=== PATIENT | male | born 2000 | race Caucasian/White ===

== ENCOUNTER 2019-10-10 09:28 | Emergency (ER) | payer MEDICAID ==
[~2019-10-10] VITALS: Ht 180.3 cm; Wt 63.5 kg
--- NOTE | 2019-10-10 09:28 | NUR ---
EUGENE MCCRARY ALS TO ER BED 03
[2019-10-10 09:30] VITALS: BP 123/82
--- NOTE | 2019-10-10 09:33 | NUR ---
18 YEAR OLD MALE BIBA FOR NAUSEA AND VOMITTING. PER EMS PT WAS GIVEN 4MG OF ZOFRAN IV PRIOR TO ARRIVAL. PER PT HE HAD A COUPLE OF BEERS LAST NIGHT AND SMOKES MARIJUANA. PT ALSO COMPLAINS OF SOME ABDOMINAL PAIN 5/10. PT STATES HE NO LONGER HAS ANY NAUSEA, BUT HAS HEADACHE. PT AOX4, BREATHING EVEN AND UNLABORED, SKIN WARM AND DRY. PMH - DENIES ALLERGIES - NKA
[2019-10-10] MEDS ORDERED: NACL 0.9% 1,000 ML IV ONE (09:40)
[2019-10-10 09:54] LABS: BASOPHILS % (AUTO) 0.3 % (0.0-2.0); EOSINOPHILS % (AUTO) 0.1 % (0.0-4.0); HEMATOCRIT 42.8 % (36-52); HEMOGLOBIN 14.5 g/dL (12.0-18.0); LYMPHOCYTES # (AUTO) 1.2 K/uL (2.0-11.5); LYMPHOCYTES % (AUTO) 8.4 % (20.5-51.1); MEAN CORPUSCULAR HEMOGLOBIN 32 pg (27-31); MEAN CORPUSCULAR HGB CONC 34 g/dL (33-37); MEAN CORPUSCULAR VOLUME 93.3 fL (80-94); MONOCYTES # (AUTO) 0.4 K/uL (0.8-1.0); MONOCYTES % (AUTO) 3.1 % (1.7-9.3); NEUTROPHILS # (AUTO) 12.6 K/uL (1.8-7.7); NEUTROPHILS % (AUTO) 88.1 % (42.2-75.2); PLATELET COUNT (AUTO) 257 K/uL (140-450); RED BLOOD CELL COUNT(AUTO) 4.59 MIL/uL (4.20-6.10); RED CELL DISTRIBUTION WIDTH 13.2 % (11.6-13.7); WHITE BLOOD COUNT (AUTO) 14.3 K/uL (4.5-11.0)
[2019-10-10 09:56] LABS: APPEARANCE,URINE CLEAR (CLEAR); BILIRUBIN,URINE NEGATIVE (NEGATIVE); BLOOD, URINE 2+ (NEGATIVE); COLOR,URINE YELLOW (YELLOW); LEUKOCYTE ESTERASE ,URINE NEGATIVE (NEGATIVE); NITRITE, URINE NEGATIVE (NEGATIVE); UGLUCOSE NEGATIVE (NEGATIVE)
[2019-10-10 10:13] LABS: ALBUMIN 4.7 g/dL (3.4-5.0); ANION GAP 18.7 (8-16); CARBON DIOXIDE 24.3 mmol/L (21-32); CREATININE 0.9 mg/dL (0.6-1.3); TOTAL BILIRUBIN 1.1 mg/dL (0.0-1.0)
--- NOTE | 2019-10-10 10:52 | NUR ---
PT ALERT AND AWAKE, BREATHING EVEN AND UNLABORED. STATES NO NAUSEA, GIVEN CUP OF WATER
--- NOTE | 2019-10-10 11:09 | NUR ---
PT NO VOMIT AFTER DRINKING CUP WATER, ERMD MADE AWARE
--- NOTE | 2019-10-10 11:19 | NUR ---
[facility] CALLED AND DEMANDED FOR MORE TESTING TO BE DONE, ER MD NOTIFIED OF PHONE CALL.
--- NOTE | 2019-10-10 11:25 | NUR ---
ERMD AT BEDSIDE TALKING TO PT
[2019-10-10 11:30] VITALS: BP 112/58
--- NOTE | 2019-10-10 11:30 | NUR ---
Patient discharged with v/s stable. Written and verbal after care instructions about nausea and vomitting given and explained. Patient alert, oriented and verbalized understanding of instructions. Ambulatory with steady gait. All questions addressed prior to discharge. ID band removed. Patient advised to follow up with PMD. Rx of zofran given. Patient educated on indication of medication including possible reaction and side effects. Opportunity to ask questions provided and answered.
[2019-10-10 12:06] LABS: WBC,URINE 0-5 /HPF (0-5)
== END 2019-10-10 11:30 | disposition home or self-care (01) ==
LOC: MED 09:28
DX: K59.00 Constipation, unspecified (principal); K86.9 Disease of pancreas, unspecified; K35.80 Unspecified acute appendicitis; K81.0 Acute cholecystitis
CPT/HCPCS: 36415; 80053; 81001; 83690; 85025; 99283